=== PATIENT | female | born 1965 | race Two or more races ===

== ENCOUNTER 2024-10-02 14:59 | Emergency (ER) | payer BC ==
[~2024-10-02] VITALS: Ht 152.4 cm; Wt 88.5 kg
[2024-10-02 15:16] VITALS: O2SAT 97
[2024-10-02] MEDS ORDERED: LIDOCAINE 1%-EPI 1:100,000 20 ML VIAL ONE (16:34)
[2024-10-02] MEDS: LIDOCAINE 2%-EPI 1:100,000 20 ML VIAL TP ONE (16:47)
[2024-10-02] MEDS ORDERED: SULF1TAB48 PO (17:44)
== END 2024-10-02 18:58 | disposition home or self-care (01) ==
LOC: ER 14:59
DX: L02.413 Cutaneous abscess of right upper limb (principal); M25.511 Pain in right shoulder; E88.810 Metabolic syndrome; I10 Essential (primary) hypertension
CPT/HCPCS: 99283; 10060; 87070; 87075; J3490; A4606; A4663

== ENCOUNTER 2024-10-04 11:48 | Emergency (ER) | payer BC ==
[~2024-10-04] VITALS: Ht 152.4 cm; Wt 88.5 kg
[~2024-10-04 11:48] MED LIST: SULF1TAB48 PO
[2024-10-04 12:32] VITALS: BP 131/74; O2SAT 99
== END 2024-10-04 12:33 | disposition home or self-care (01) ==
LOC: ER 11:49
DX: L72.3 Sebaceous cyst (principal)
CPT/HCPCS: A4606; A4663

== ENCOUNTER 2024-10-24 13:03 | Emergency (ER) | payer BC ==
[~2024-10-24] VITALS: Ht 152.4 cm; Wt 88.5 kg
[2024-10-24 13:08] VITALS: O2SAT 98
== END 2024-10-24 13:25 | disposition home or self-care (01) ==
LOC: ER 13:03
DX: L02.212 Cutaneous abscess of back [any part, except buttock and flank] (principal); Z48.00 Encounter for change or removal of nonsurgical wound dressing; E88.810 Metabolic syndrome; E11.9 Type 2 diabetes mellitus without complications
CPT/HCPCS: A4606; A4663